=== PATIENT | female | born 1985 | race Caucasian/White ===

== ENCOUNTER 2016-08-05 09:41 | Emergency (ER) | payer MEDICARE, OTHER ==
[2016-08-05 10:28] VITALS: BP 145/89
[2016-08-05] MEDS ORDERED: PROMETHAZINE HCL 25 MG/ML AMPUL IM ONE (10:52)
[2016-08-05] MEDS ORDERED: PROMETHAZINE HCL 25 MG/ML AMPUL ONE (10:58)
--- NOTE | 2016-08-05 11:15 | ERNOTE ---
Medical Problem HPI - Narrative Date of Service: 08/05/16 - General Chief Complaint: Nausea/Vomiting Time Seen by Provider: 08/05/16 10:19 Source: patient Exam Limitations: no limitations - Immun/Allergies/Home Medications Immunizations: IMMUNIZATION HX Immunizations Up to Date Yes History of Influenza Vaccine Yes Hx Pneumococcal Vaccination No Allergies/Adverse Reactions: Allergies acetaminophen [From Tylenol] Allergy (Mild, Verified 08/05/16 10:28) Hives bupropion HCl [From Wellbutrin] Allergy (Mild, Verified 08/05/16 10:28) Hives pollen extracts Allergy (Verified 08/05/16 10:28) Home Medications: HOME MEDICATIONS Ranitidine HCl [Acid Control] 150 mg PO QID 11/29/13 [Last Taken 07/28/14] Levonorgestrel [Mirena] 1 each IY DAILY 04/01/14 [Last Taken 07/28/14] Melatonin/Pyridoxine HCl (B6) [Melatonin 10 mg Tablet] 1 each PO DAILY 07/05/15 [Last Taken Unknown] Albuterol Sulfate [Proair Hfa] 2 puff IH Q4H PRN #1 inhaler 01/18/16 [Last Taken Unknown] Diltiazem HCl [Cardizem] 120 mg PO DAILY 04/13/16 [Last Taken Unknown] traMADol HCL [Ultram] 50 mg PO TID PRN #21 tab 05/25/16 [Last Taken Unknown] Nabumetone 750 mg PO BID #20 tablet 07/17/16 [Last Taken Unknown] Promethazine HCl [Phenergan] 25 mg PO QID PRN #14 tablet 08/05/16 [Last Taken Unknown] - History of Present History Narrative: Patient is a 31 year old female who presents to the ED with complaints of sudden onset of vomiting. Patient states she was awake, watching television with her boyfriend at 0300 this morning when she felt a sudden urge to vomit. States vomited and then diarrhea issues started. States from [id number] vomited approximately 6 times. States it is slowing down and has not vomited since 0930 this morning. Denies fever, chills, body aches Date (Duration): 08/05/16 Time (Timing): 03:00 Timing: intermittent Severity: mild Modifying Factors - (Improves): Present: rest Review of Systems - Review of Systems Constitutional: Present: See HPI. Absent: recent illness, fever, chills, diaphoresis, weakness, fatigue EYE: Present: no symptoms reported. Absent: eye pain, eye discharge, blurred vision ENT: Present: no symptoms reported. Absent: ear pain, ear discharge, nose congestion, nasal drainage, sore throat, throat swelling Respiratory: Present: no symptoms reported. Absent: shortness of breath, cough , wheezing, stridor Cardiology: Present: no symptoms reported. Absent: chest pain, palpitations, syncope, edema Gastrointestinal/Abdominal: Present: nausea, vomiting, diarrhea, abdominal pain , eating less, drinking less Genitourinary: Present: no symptoms reported Musculoskeletal: Present: no symptoms reported. Absent: back pain, muscle pain , muscle stiffness Skin: Absent: rash, dryness Neurological: Present: no symptoms reported - Patient's Past Medical History Patient History - Medical: Chronic Pain, Depression, Fibromyalgia, GERD, Obesity , UTI'S Patient History - Cardiac/Respiratory: Arrhythmias, Asthma Patient History - Cancer: No Hx of Cancer Patient History - Surgical Procedures: Cholecystectomy, D & C, Other - Family History Father Family History - Medical: , Other Family History - Cardiac/Respiratory: No pertinent hx, Other Mother Family History - Medical: Family History - Cardiac/Respiratory: No pertinent hx, Other - Social History Living Situations: home Does anyone smoke in the home?: Yes Alcohol Use: none Drug Use: none Physical Exam - Physical Exam General Appearance: Present: wd/wn, alert, no apparent distress Eye Exam: Normal inspection: bilateral Ears, Nose, Throat: Present: hearing grossly normal. Absent: dry mucous membranes Neck: Present: normal inspection, nontender, full range of motion. Absent: lymphadenopathy (R), lymphadenopathy (L) Respiratory: Present: no respiratory distress, normal breath sounds, no accessory muscle use, chest nontender, lungs clear Cardiovascular/Chest: Present: regular rate, rhythm, no murmur, normal peripheral pulses Gastrointestinal/Abdominal: Present: normal bowel sounds, nondistended, soft, no organomegaly, tenderness - states tenderness across abdomen. Absent: distended Back Exam: Present: normal inspection, normal range of motion, no CVA tenderness , no vertebral tenderness Extremity Exam: Present: normal inspection, non-tender, no edema, normal range of motion Neurological Exam: Present: alert, oriented, normal mood/affect, no motor/ sensory deficits Skin Exam: Present: normal color, warm/dry. Absent: diaphoresis, cyanosis, pallor, skin rash Lymphatic Exam: Present: no adenopathy ED Progress - Vital Signs Patient's Vital Signs:: I have reviewed the patient's vital signs. Vital Signs: Vital Signs 08/05/16 10:26 Temperature 36.5 C Pulse Rate 112 H Respiratory 14 Rate Blood Pressure 145/89 O2 Sat by Pulse 99 Oximetry - Progress/Reassessment Chief Complaint: Nausea/Vomiting Progress:: Improved Progress Note-Subjective: 08/05/16 11:21 Patient states she has not vomited since being here in the ED. Is taking sips of 7 up without emesis. States she feels better Departure - Departure Clinical Impression: Vomiting and diarrhea Disposition: Home Follow Up Needed Condition: Good Instructions: Nausea and Vomiting, Adult, [id number], Diarrhea, Adult, Easy- to-Read Additional Instructions: Clear liquids today--drink water, sprite and gatorade. No pop, alcohol, juice or milk. If stomach tolerates then can proceed to dry toast and cereal. Prescriptions: Promethazine HCl [Phenergan] 25 mg PO QID PRN #14 tablet PRN Reason: Nausea And Vomiting
== END 2016-08-05 11:51 | disposition home or self-care (01) ==
LOC: ER 09:41
DX: R11.10 Vomiting, unspecified (principal); R19.7 Diarrhea, unspecified

== ENCOUNTER 2016-09-14 15:41 | Emergency (ER) | payer MEDICARE, OTHER ==
[2016-09-14 16:07] VITALS: BP 151/81
[2016-09-14] MEDS ORDERED: KETOROLAC TROMETHAMINE 60 MG/2 ML VIAL IM ONE ×2 (16:09→16:11)
--- OUTSIDE RECORDS SUMMARY | 2016-09-14 16:18 | XMS REPORT | Continuity of Care Document ---
:1985 Author Organization [facility] [place] [address] Care Team Providers Name Role Phone Alexi Thomson Primary Care Provider [phone] Source Comments This disclosure is being made pursuant to the [employer] program and maynot contain all information available regarding this patient.[facility] Active Allergies and Adverse Reactions Not on File Current Medications Be aware that medications may not be up to date as of this document. Alwaysverify current medications with the patient. Prescription Sig. Disp. Refills Start Date End Date Status escitalopram (LEXAPRO) 20 Take 20 mg by mouth Active MG tablet daily. diltiazem (DILACOR XR) Take 120 mg by Active 120 MG 24 hr capsule mouth daily. ranitidine (ZANTAC) 300 Take 300 mg by Active MG tablet mouth nightly. 1 tab tid albuterol (PROVENTIL Inhale 2 puffs into Active HFA;VENTOLIN HFA) 108 (90 the lungs every 6 BASE) MCG/ACT inhaler (six) hours as needed for Wheezing. traMADol (ULTRAM) 50 MG Take 50 mg by mouth Active tablet every 6 (six) hours as needed for Pain. 1 tab every 4-6 hours prn lidocaine-prilocaine Apply to low back 60 g 2 04/21/2014 Active (EMLA) cream twice a day as needed. Active Problems Not on file Most Recent Encounters Date Type Specialty Providers Description 07/05/2016 Data Import Social History Tobacco Use Types Packs/Day Years Used Date Current Some Day Smoker Alcohol Use Drinks/Week oz/Week Comments Yes occassionally Last Filed Vital Signs Vital Sign Reading Time Taken Blood Pressure 136/92 04/21/2014 1:32 PM CDT Pulse 104 04/21/2014 1:32 PM CDT Temperature 36.9 C (98.5 F) 04/21/2014 1:32 PM CDT Respiratory Rate - - Height 1.651 m (5' 5") 04/21/2014 1:32 PM CDT Weight 87.091 kg (192 lb) 04/21/2014 1:32 PM CDT Body Mass Index 31.95 04/21/2014 1:32 PM CDT Oxygen Saturation - - Plan of Care Health Maintenance Due Date Last Done Comments Tetanus/Pertussis (1 - Tdap) 2002 Pap Smear 2004 Influenza Immunization (#1) 2016 Results from Last 3 Months Not on file
--- OUTSIDE RECORDS SUMMARY | 2016-09-14 16:19 | XMS REPORT | Continuity of Care Document ---
:1985 Author Organization [facility] ([facility]) Address [address] [place] [address] Phone [phone] Care Team Providers Name Role Phone Tatum Vásquez Primary Care Provider [phone] Source Comments This disclosure is being made pursuant to the Care Everywhere program, applicable federal and state laws, and may not contain all informaitonavailable regarding this patient.[facility] ([facility]) Active Allergies and Adverse Reactions No Active Allergies Current Medications Not on file Active Problems Not on file Social History Tobacco Use Types Packs/Day Years Used Date Never Assessed Last Filed Vital Signs Vital Sign Reading Time Taken Blood Pressure 132/74 09/23/2006 11:11 AM VERIFICATION ENGINEER Pulse 64 09/23/2006 11:11 AM VERIFICATION ENGINEER Temperature - - Respiratory Rate 16 09/23/2006 11:11 AM VERIFICATION ENGINEER Height 1.65 m (5' 4.96") 05/26/2001 11:00 AM VERIFICATION ENGINEER Weight 66.996 kg (147 lb 11.2 oz) 09/23/2006 11:11 AM VERIFICATION ENGINEER Body Mass Index 24.61 09/23/2006 11:11 AM VERIFICATION ENGINEER Oxygen Saturation - - Plan of Care Health Maintenance Due Date Last Done Comments Hepatitis B Vaccine (1 of 3 - Primary Series) 1983 Tdap Vaccine 1994 Lipid Disorder Screening 2001 MMR Vaccine 2001 Td Vaccine 2001 Varicella Vaccine (1 of 2 - Adult - No Evidence of 2001 Immunity) Cervical Cancer Screening 2013 Influenza Vaccine: Seasonal (#1) 02/20/2016 Results from Last 3 Months Not on file
--- NOTE | 2016-09-14 16:20 | ERNOTE ---
Back Pain ER HPI Presenting Symptoms: hx chronic back pain Time Seen by Provider: 09/14/16 15:59 Source: patient Exam Limitations: no limitations Immunizations: IMMUNIZATION HX Immunizations Up to Date Yes History of Influenza Vaccine Yes Hx Pneumococcal Vaccination No Allergies/Adverse Reactions: Allergies acetaminophen [From Tylenol] Allergy (Mild, Verified 08/05/16 10:28) Hives bupropion HCl [From Wellbutrin] Allergy (Mild, Verified 08/05/16 10:28) Hives pollen extracts Allergy (Verified 08/05/16 10:28) Home Medications: HOME MEDICATIONS Ranitidine HCl [Acid Control] 150 mg PO QID 11/29/13 [Last Taken 07/28/14] Levonorgestrel [Mirena] 1 each IY DAILY 04/01/14 [Last Taken 07/28/14] Melatonin/Pyridoxine HCl (B6) [Melatonin 10 mg Tablet] 1 each PO DAILY 07/05/15 [Last Taken Unknown] Albuterol Sulfate [Proair Hfa] 2 puff IH Q4H PRN #1 inhaler 01/18/16 [Last Taken Unknown] Diltiazem HCl [Cardizem] 120 mg PO DAILY 04/13/16 [Last Taken Unknown] traMADol HCL [Ultram] 50 mg PO TID PRN #21 tab 05/25/16 [Last Taken Unknown] Nabumetone 750 mg PO BID #20 tablet 07/17/16 [Last Taken Unknown] Promethazine HCl [Phenergan] 25 mg PO QID PRN #14 tablet 08/05/16 [Last Taken Unknown] Narrative: Patient has chronic back pain for years. She denies any acute injuries, is already taking ibuprofen,flexeril, gabapentin. She is requesting tramadol. Timing: Reports: constant Quality/Severity: Reports: moderate Location of pain: Reports: lower back, no radiation Recent Injury?: Reports: no Associated Symptoms: Denies: sweating, constipation/incontinence, nausea/ vomiting, problems urinating, difficulty walking, lightheadedness, numbess/ weakness in legs Prior Treament: Reports: similar symptoms before Review of Systems - Review of Systems Constitutional: Absent: recent illness ENT: Present: nose congestion. Absent: sore throat Respiratory: Present: cough. Absent: shortness of breath Cardiology: Absent: chest pain Gastrointestinal/Abdominal: Absent: nausea, vomiting, diarrhea, abdominal pain Genitourinary: Present: no symptoms reported Musculoskeletal: Present: See HPI Skin: Present: no symptoms reported. Absent: rash Neurological: Present: no symptoms reported. Absent: weakness, numbness - Patient's Past Medical History Patient History - Medical: Chronic Pain, Depression, Fibromyalgia, GERD, Obesity , UTI'S Patient History - Cardiac/Respiratory: No pertinent hx Patient History - Cancer: No Hx of Cancer Patient History - Surgical Procedures: Cholecystectomy, D & C, Other Patient History - Other: None - Family History Father Family History - Medical: , Other Family History - Cardiac/Respiratory: No pertinent hx, Other Mother Family History - Medical: Family History - Cardiac/Respiratory: No pertinent hx, Other - Social History Living Situations: home Abuse History: No History of abuse Psych History: No pertinent hx Does anyone smoke in the home?: Yes Smoking Status: Current every day smoker Cigarettes Packs Per Day: 0.5 Alcohol Use: none Drug Use: none - Immunizations Immunizations Up to Date: Yes Hx Pneumococcal Vaccination: No History of Influenza Vaccine: Yes Physical Exam - Physical Exam General Appearance: Present: wd/wn, alert, no apparent distress Respiratory: Present: no respiratory distress, normal breath sounds, no accessory muscle use, chest nontender, lungs clear Cardiovascular/Chest: Present: regular rate, rhythm, no murmur Back Exam: Present: normal inspection, normal range of motion, no vertebral tenderness Extremity Exam: Present: normal inspection Neurological Exam: Present: alert, oriented, normal mood/affect, no motor/ sensory deficits Skin Exam: Present: normal color, warm/dry ED Progress - Vital Signs Patient's Vital Signs:: I have reviewed the patient's vital signs. Vital Signs: Vital Signs 09/14/16 16:00 Pulse Rate 102 H Respiratory 18 Rate Blood Pressure 151/81 O2 Sat by Pulse 96 Oximetry - Progress/Reassessment Chief Complaint: Back Pain Progress Note-Subjective: 09/14/16 16:10 explained that I cannot refill narcotic prescription for chronic pain, patient requested toradol Departure Clinical Impression: Chronic low back pain Qualifiers: Back pain laterality: bilateral Sciatica presence: without sciatica Qualified Code(s): M54.5 - Low back pain - Departure Disposition: Home self-care Condition: Good Instructions: Chronic Pain Additional Instructions: continue the ibuprofen, flexeril and gabapentin follow up with your doctor next week as scheduled Referrals: Kraig Roman MD [Primary Care Provider] -
== END 2016-09-14 16:28 | disposition home or self-care (01) ==
LOC: ER 15:41
DX: M54.5 Low back pain (principal); Z72.0 Tobacco use

== ENCOUNTER 2017-01-13 15:06 | Emergency (ER) | payer MEDICARE, OTHER ==
[2017-01-13] MEDS ORDERED: ORPHENADRINE CITRATE 30 MG/ML VIAL IM ONE (15:46)
[2017-01-13] MEDS ORDERED: KETOROLAC TROMETHAMINE 60 MG/2 ML VIAL IM ONE ×2 (15:46→15:50)
--- OUTSIDE RECORDS SUMMARY | 2017-01-13 15:49 | XMS REPORT | Continuity of Care Document ---
:1985 Author Organization [facility] Address [place] [address] Care Team Providers Name Role Phone Davy Roman Primary Care Provider [phone] Source Comments This disclosure is being made pursuant to the [employer] program and maynot contain all information available regarding this patient.[facility] Active Allergies and Adverse Reactions Not on [...] Recent Encounters Date Type Specialty Providers Description 11/12/2016 Telephone Family Medicine Gabriella Sharma, silo erector Management Social History Tobacco Use Types Packs/Day Years [...]
[2017-01-13] MEDS ORDERED: ORPHENADRINE CITRATE 30 MG/ML VIAL ONE (15:50)
--- NOTE | 2017-01-13 15:58 | ERNOTE ---
Back Pain ER HPI Date of Service: 01/13/17 Presenting Symptoms: hx chronic back pain Time Seen by Provider: 01/13/17 15:40 Source: patient Exam Limitations: no limitations Immunizations: IMMUNIZATION HX Immunizations Up to Date Yes History of Influenza Vaccine Yes Hx Pneumococcal Vaccination Yes Allergies/Adverse Reactions: Allergies pollen extracts Allergy (Mild, Verified 01/13/17 15:37) uri s/s acetaminophen [From Tylenol] Adverse Reaction (Mild, Verified 01/13/17 15:37) rash bupropion HCl [From Wellbutrin] Adverse Reaction (Mild, Verified 01/13/17 15:37) rash Home Medications: HOME MEDICATIONS Ranitidine HCl [Acid Control] 150 mg PO TID 11/29/13 [Last Taken 07/28/14] Levonorgestrel [Mirena] 1 each IY ONCE 04/01/14 [Last Taken 07/28/14] Albuterol Sulfate [Proair Hfa] 2 puff IH Q4H PRN #1 inhaler 01/18/16 [Last Taken Unknown] Diltiazem HCl [Cardizem] 120 mg PO DAILY 04/13/16 [Last Taken Unknown] traMADol HCL [Ultram] 50 mg PO TID PRN #21 tab 05/25/16 [Last Taken Unknown] Cyclobenzaprine HCl [Flexeril] 10 mg PO TID PRN #30 tab 01/13/17 [Last Taken Unknown] Lidocaine [Lidoderm 5%] 1 patch TP DAILY PRN #30 patch 01/13/17 [Last Taken Unknown] Meloxicam 7.5 mg PO DAILY #30 tablet 01/13/17 [Last Taken Unknown] Narrative: Pt. comes in with c/o mid back pain. Pt. states that this is the same pain that she has had chronically for years but without her chronic tramadol the pain radiates up to her neck. Pt. 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 Pt. denies any alleviating factors despite taking Ibuprofen for the pain. Review of Systems - Review of Systems Constitutional: Present: no symptoms reported. Absent: recent illness, fever, chills, weakness, fatigue, malaise EYE: Present: no symptoms reported ENT: Present: no symptoms reported Respiratory: Present: no symptoms reported. Absent: shortness of breath, cough , wheezing Cardiology: Present: no symptoms reported. Absent: chest pain, palpitations, edema Gastrointestinal/Abdominal: Present: no symptoms reported. Absent: nausea, vomiting, diarrhea Genitourinary: Present: no symptoms reported Musculoskeletal: Present: back pain - Mid back pain. Absent: neck pain, joint pain Skin: Present: no symptoms reported Neurological: Present: no symptoms reported. Absent: headache, dizziness/light- headedness, numbness, tingling All Other Systems: All systems neg except as marked - Patient's Past Medical History Patient History - Medical: Chronic Pain, Depression, Fibromyalgia, GERD, Obesity , UTI'S Patient History - Cardiac/Respiratory: No pertinent hx, Arrhythmias Patient History - Cancer: No Hx of Cancer Patient History - Surgical Procedures: Cholecystectomy, D & C Patient History - Other: None LMP (females 10-50): has iud - Family History Father Family History - Medical: History Unknown Family History - Cardiac/Respiratory: History Unknown Family History - Cancer: History Unknown Mother Family History - Medical: Family History - Cardiac/Respiratory: No pertinent hx Family History - Cancer: History Unknown Sister Family History - Medical: History Unknown Family History - Cardiac/Respiratory: History Unknown Family History - Cancer: History Unknown - Social History Living Situations: alone Abuse History: No History of abuse Psych History: Hx of Depression, Current tx/ever been on anti-depressants or anti-anxiety meds Does anyone smoke in the home?: Yes Smoking Status: Current every day smoker Have you smoked in the past 12 months: Yes Do you dip or chew tobacco: No Patient requests Smoking Cessation Consult: No Initiate information on Smoking Cessation: No Alcohol Use: none Drug Use: none - Immunizations Immunizations Up to Date: Yes Hx Pneumococcal Vaccination: Yes History of Influenza Vaccine: Yes Physical Exam - Physical Exam General Appearance: Present: wd/wn, alert, no apparent distress Eye Exam: Normal inspection: bilateral, PERRL: bilateral, EOMI: bilateral Neck: Present: normal inspection, nontender. Absent: lymphadenopathy (R), lymphadenopathy (L) Respiratory: Present: no respiratory distress, normal breath sounds, no accessory muscle use, chest nontender, lungs clear Cardiovascular/Chest: Present: regular rate, rhythm, no murmur, normal peripheral pulses Back Exam: Present: normal range of motion, no CVA tenderness, vertebral tenderness - T8-S1 Extremity Exam: Present: normal inspection, non-tender, normal range of motion, no edema Neurological Exam: Present: alert, oriented, normal mood/affect, no motor/ sensory deficits, lasting floorworker II-XII nml as tested, normal cerebellar test Skin Exam: Present: normal color, warm/dry. Absent: pallor, skin rash ED Progress - Date and Time Seen: Date and Time: 01/13/17 15:47 Explained that pt. would not be getting narcotics but that I would start her on new antiinflammatories and lidocaine patch and flexeril for pain. - Vital Signs Patient's Vital Signs:: I have reviewed the patient's vital signs. Vital Signs: Vital Signs 01/13/17 15:26 Temperature 36.5 C Pulse Rate 93 Respiratory 18 Rate Blood Pressure 152/80 O2 Sat by Pulse 100 Oximetry - Progress/Reassessment Chief Complaint: Back Pain Departure Clinical Impression: Chronic back pain greater than 3 months duration - Departure Disposition: Home self-care Condition: Good Instructions: Back Pain, Adult Additional Instructions: Keep appointment with Dr Chang in January and change lidoderm patch daily. Do not take Ibuprofen with meloxicam. Referrals: Tomer Chang MD [Primary Care Provider] - Prescriptions: Cyclobenzaprine HCl [Flexeril] 10 mg PO TID PRN #30 tab PRN Reason: MUSCLE SPASMS Lidocaine [Lidoderm 5%] 1 patch TP DAILY PRN #30 patch PRN Reason: Pain Meloxicam 7.5 mg PO DAILY #30 tablet
[2017-01-13 16:23] VITALS: BP 148/74
[2017-01-13] MEDS ORDERED: LIDOCAINE 1 PATCH ADH..PATCH TP ONE (16:30)
== END 2017-01-13 16:22 | disposition home or self-care (01) ==
LOC: ER 15:06
DX: M54.89 Other dorsalgia (principal); G89.29 Other chronic pain; F32.89 Other specified depressive episodes; M79.7 Fibromyalgia; K21.9 Gastro-esophageal reflux disease without esophagitis; Z72.0 Tobacco use

== ENCOUNTER 2017-06-09 14:30 | Emergency (ER) | payer MEDICARE, OTHER ==
[2017-06-09] MEDS ORDERED: KETOROLAC TROMETHAMINE 30 MG/ML VIAL IM ONE (15:07)
[2017-06-09 15:24] LABS: Urine Appearance Clear; Urine Bilirubin Negative (NEGATIVE); Urine Blood Negative /ul (NEGATIVE); Urine Color Yellow; Urine Ketone Negative (NEGATIVE)
[2017-06-09 15:25] LABS: Urine Bacteria None Seen; Urine Nitrite Negative (NEGATIVE); Urine Protein Negative (NEGATIVE); Urine RBC None Seen /hpf (0-5); Urine Urobilinogen Normal (NORMAL); Urine WBC None Seen /hpf (0-5)
[2017-06-09] MEDS ORDERED: KETOROLAC TROMETHAMINE 30 MG/ML VIAL ONE (15:29)
[2017-06-09 15:30] LABS: Hemoglobin 13.4 gm/dL (12.5-16.0); Mean Cell Volume 89.7 fl (78-100); Mean Corpuscular Hemoglobin 29.3 pg (27-31); Mean Corpuscular Hgb Conc 32.7 g/dl (32-36); Mean Platelet Volume 10.2 fl (6.0-9.5); Neutrophil # 4.5 K/mm3 (1.3-6.0); Neutrophil % 58.8 % (42-75.0); Platelet Count 295 K/mm3 (150-450); Red Blood Count 4.57 M/mm3 (4.2-5.4); White Blood Count 7.6 K/mm3 (4.0-10.5)
[2017-06-09 15:43] LABS: Albumin * 3.8 gm/dl (3.4-5.0); Anion Gap 12.8 mmol/L (6.8-13.8); Bilirubin, Total 0.2 mg/dL (0.0-1.1); Ca. Corrected For Albumin 8.8 mg/dL (8.4-10.2); Carbon Dioxide 28.5 mmol/L (24-32.6); Potassium 4.3 mmol/L (3.4-4.6); Total Protein 7.5 gm/dL (6.2-8.2)
[2017-06-09 15:47] VITALS: BP 136/84
--- NOTE | 2017-06-09 17:22 | ERNOTE ---
ER Female HPI Date of Service: 06/09/17 Stated Complaint: BACK/SIDE PAIN Time Seen by Provider: 06/09/17 14:57 Source: patient Exam Limitations: no limitations Immunizations: IMMUNIZATION HX Immunizations Up to Date Yes History of Influenza Vaccine Yes Hx Pneumococcal Vaccination Yes Allergies/Adverse Reactions: Allergies pollen extracts Allergy (Mild, Verified 06/09/17 14:45) uri s/s acetaminophen [From Tylenol] Adverse Reaction (Mild, Verified 06/09/17 14:45) rash bupropion HCl [From Wellbutrin] Adverse Reaction (Mild, Verified 06/09/17 14:45) rash Home Medications: HOME MEDICATIONS Ranitidine HCl [Acid Control] 150 mg PO TID 11/29/13 [Last Taken 07/28/14] Levonorgestrel [Mirena] 1 each IY ONCE 04/01/14 [Last Taken 07/28/14] Albuterol Sulfate [Proair Hfa] 2 puff IH Q4H PRN #1 inhaler 01/18/16 [Last Taken Unknown] Diltiazem HCl [Cardizem] 120 mg PO DAILY 04/13/16 [Last Taken Unknown] traMADol HCL [Ultram] 50 mg PO TID PRN #12 tab 06/09/17 [Last Taken Unknown] - History of Present Illness Narrative: Patient presents to the ED for right flank pain that radiates into her RUQ. SHe has been having this for 2-3 days. She has had pain like this before but it has gone away. No vomiting ot fever. Nothing seems to make this better or worse. o CP roSOB. No pleuritic pain, no DVT Sx. No low abdominal pain. Has not seen anyone else for this. Timing: Present: constant, other - fluctuating intensity Quality: Present: moderate Onset Location: Present: right flank Radiation: Present: other - RUQ Activities at Onset: Present: none Modifying Factors - (Improves): Present: other - nothing Modifying Factors - (Worsens): Present: other - nothing Associated Symptoms: Absent: fever/chills, vomiting, dysuria Prior Treatment: Absent: recently seen Review of Systems - Review of Systems Constitutional: Absent: fever ENT: Absent: sore throat Respiratory: Absent: shortness of breath Cardiology: Absent: chest pain Gastrointestinal/Abdominal: Present: See HPI Genitourinary: Absent: dysuria Musculoskeletal: Present: back pain Skin: Absent: rash Neurological: Absent: weakness - Patient's Past Medical History Patient History - Medical: Chronic Pain, Depression, Fibromyalgia, GERD, Obesity , UTI'S Patient History - Cardiac/Respiratory: No pertinent hx, Arrhythmias Patient History - Cancer: No Hx of Cancer Patient History - Surgical Procedures: Cholecystectomy, D & C Patient History - Other: None - Family History Father Family History - Medical: History Unknown Family History - Cardiac/Respiratory: History Unknown Family History - Cancer: History Unknown Mother Family History - Medical: Family History - Cardiac/Respiratory: No pertinent hx Family History - Cancer: History Unknown Sister Family History - Medical: History Unknown Family History - Cardiac/Respiratory: History Unknown Family History - Cancer: History Unknown - Social History Living Situations: home Abuse History: No History of abuse Psych History: Hx of Depression, Current tx/ever been on anti-depressants or anti-anxiety meds Alcohol Use: none Drug Use: none - Immunizations Immunizations Up to Date: Yes Hx Pneumococcal Vaccination: Yes History of Influenza Vaccine: Yes Physical Exam - Physical Exam General Appearance: Present: alert, no apparent distress Head Exam: Present: normal inspection, no evidence of injury Eye Exam: Normal inspection: bilateral, PERRL: bilateral Ears, Nose, Throat: Present: normal ENT inspection Neck: Present: normal inspection Respiratory: Present: no respiratory distress, normal breath sounds, no accessory muscle use, lungs clear Cardiovascular/Chest: Present: regular rate, rhythm, normal peripheral pulses Gastrointestinal/Abdominal: Present: normal bowel sounds, nontender, nondistended, soft Back Exam: Present: no vertebral tenderness, CVA tenderness (R) Extremity Exam: Present: normal inspection, normal range of motion, no edema Neurological Exam: Present: alert, normal mood/affect, no motor/sensory deficits. Absent: motor weakness Skin Exam: Present: normal color, warm/dry ED Progress - Results and Orders Patient's Lab Results:: I have reviewed the patient's lab results. - Vital Signs Patient's Vital Signs:: I have reviewed the patient's vital signs. Vital Signs: Vital Signs 06/09/17 06/09/17 14:40 15:45 Temperature 36.8 C 36.8 C Pulse Rate 99 82 Respiratory 12 14 Rate Blood Pressure 149/90 136/84 O2 Sat by Pulse 99 99 Oximetry - CT/Ultrasound CT/Ultrasound Narrative: I reviewed official radiology CT report - Progress/Reassessment Chief Complaint: Genitourinary Problem Progress Note-Subjective: 06/09/17 17:21 No clear etiology, possible musculoskeletal. No UTI, nothign to suggest acute intra-abdominal pathology or [id number] syndrome. No suggestion on PE or intra-thoracic etiology. She feels like going home. I discussed warning signs and reasons to return as well as the need for close f/u. Departure Clinical Impression: Right flank pain - Departure Disposition: Home self-care Condition: Stable Instructions: Flank Pain, [id number] Additional Instructions: Rest. FLuids. No driving with Ultram. Follow-up with your doctor within 3 days for a re-check. Return for fever, vomiting or if your condition worsens or changes in any way. Prescriptions: traMADol HCL [Ultram] 50 mg PO TID PRN #12 tab PRN Reason: Pain
== END 2017-06-09 17:22 | disposition home or self-care (01) ==
LOC: ER 14:30
DX: R10.11 Right upper quadrant pain (principal); G89.29 Other chronic pain; M79.7 Fibromyalgia; K21.9 Gastro-esophageal reflux disease without esophagitis; Z87.440 Personal history of urinary (tract) infections

== ENCOUNTER 2017-07-15 14:57 | Emergency (ER) | payer MEDICARE, OTHER ==
[2017-07-15 15:21] VITALS: BP 124/76
[2017-07-15] MEDS: GABAPENTIN 100 MG CAPSULE PO ONE (15:53)
--- NOTE | 2017-07-15 15:53 | ERNOTE ---
Medical Problem HPI - Narrative Date of Service: 07/15/17 - General Chief Complaint: Foot Injury/Pain Time Seen by Provider: 07/15/17 15:39 Source: patient Exam Limitations: no limitations - Immun/Allergies/Home Medications Immunizations: IMMUNIZATION HX Immunizations Up to Date Yes History of Influenza Vaccine No Hx Pneumococcal Vaccination No Allergies/Adverse Reactions: Allergies pollen extracts Allergy (Mild, Verified 07/15/17 15:25) uri s/s acetaminophen [From Tylenol] Adverse Reaction (Mild, Verified 07/15/17 15:25) rash bupropion HCl [From Wellbutrin] Adverse Reaction (Mild, Verified 07/15/17 15:25) rash Home Medications: HOME MEDICATIONS Ranitidine HCl [Acid Control] 150 mg PO TID 11/29/13 [Last Taken 07/28/14] Levonorgestrel [Mirena] 1 each IY ONCE 04/01/14 [Last Taken 07/28/14] Albuterol Sulfate [Proair Hfa] 2 puff IH Q4H PRN #1 inhaler 01/18/16 [Last Taken Unknown] Diltiazem HCl [Cardizem] 120 mg PO DAILY 04/13/16 [Last Taken Unknown] Gabapentin 300 mg PO BID #30 capsule 07/15/17 [Last Taken Unknown] - History of Present History Narrative: Patient is a 32-year-old female who presents to the emergency room complaining of bilateral foot pain that has been ongoing for the past several years, at least 5 years. She is currently on gabapentin but she can't remember the dosage. She ran out of her medication and has not taken gabapentin for the past 2 days. She is here with her son who collaborated with her history. She reports foot pain from the ankle all the way to the toes, and a glove and stocking fashion. She denies any swelling, open wounds, redness, paresthesia, Date (Duration): 07/13/17 Timing: constant Severity: moderate Review of Systems - Review of Systems Constitutional: Present: See HPI EYE: Present: see HPI ENT: Present: See HPI Respiratory: Present: See HPI Cardiology: Present: See HPI Gastrointestinal/Abdominal: Present: See HPI Musculoskeletal: Present: See HPI Skin: Present: See HPI Neurological: Present: See HPI Endocrine: Present: See HPI Hematologic/Lymphatic: Present: See HPI Psych: Present: See HPI - Patient's Past Medical History Patient History - Medical: Chronic Pain, Depression, Fibromyalgia, GERD, Obesity , UTI'S Patient History - Cardiac/Respiratory: No pertinent hx, Arrhythmias Patient History - Cancer: No Hx of Cancer Patient History - Surgical Procedures: Cholecystectomy, D & C Patient History - Other: None LMP (females 10-50): IUD - Family History Father Family History - Medical: History Unknown Family History - Cardiac/Respiratory: History Unknown Family History - Cancer: History Unknown Mother Family History - Medical: Family History - Cardiac/Respiratory: No pertinent hx Family History - Cancer: History Unknown Sister Family History - Medical: History Unknown Family History - Cardiac/Respiratory: History Unknown Family History - Cancer: History Unknown maternal grandmother Family History - Medical: , Liver Disease Family History - Cardiac/Respiratory: History Unknown Family History - Cancer: History Unknown - Social History Living Situations: significant other Abuse History: No History of abuse Psych History: No pertinent hx Smoking Status: Current every day smoker Have you smoked in the past 12 months: Yes Do you dip or chew tobacco: No Patient requests Smoking Cessation Consult: No Initiate information on Smoking Cessation: No Alcohol Use: none Drug Use: none - Immunizations Immunizations Up to Date: Yes Hx Pneumococcal Vaccination: No History of Influenza Vaccine: No Physical Exam - Physical Exam General Appearance: Present: wd/wn, alert, no apparent distress Head Exam: Present: normal inspection, no evidence of injury Extremity Exam: Present: normal inspection, normal except -, normal range of motion Neurological Exam: Present: alert, oriented, normal mood/affect Skin Exam: Present: normal color, warm/dry Lymphatic Exam: Present: no adenopathy ED Progress - Vital Signs Patient's Vital Signs:: I have reviewed the patient's vital signs. Vital Signs: Vital Signs 07/15/17 15:15 Temperature 36.5 C Pulse Rate 92 Respiratory 15 Rate Blood Pressure 124/76 O2 Sat by Pulse 100 Oximetry - Progress/Reassessment Chief Complaint: Foot Injury/Pain Progress:: Unchanged Progress Note-Subjective: 07/15/17 15:48 Patient has been on gabapentin before as per the history she's given. But gabapentin is not part of her medication list. I am not opposed to starting her on 300 mg of gabapentin twice a day. Follow-up with the primary care physician and hopefully primary care physician can titrate her gabapentin to symptom control - Transfer of Care Expected Disposition: Discharge Departure Clinical Impression: Neuropathy - Departure Disposition: [facility] Condition: Stable Instructions: Neuropathic Pain Print Language: German Additional Instructions: We'll proceed and give her 300 mg of gabapentin by mouth 1 here in the emergency room right prescription for gabapentin 300 mg twice a day to be picked up tomorrow and have her follow up with her primary care physician Prescriptions: Gabapentin 300 mg PO BID #30 capsule
== END 2017-07-15 15:56 | disposition home or self-care (01) ==
LOC: ER 14:57
DX: G62.9 Polyneuropathy, unspecified; M79.7 Fibromyalgia; K21.9 Gastro-esophageal reflux disease without esophagitis; G89.29 Other chronic pain

== ENCOUNTER 2017-07-26 14:18 | Emergency (ER) | payer MEDICARE, OTHER ==
[2017-07-26 14:25] VITALS: BP 127/86
[2017-07-26] MEDS ORDERED: KETOROLAC TROMETHAMINE 60 MG/2 ML VIAL IM ONE (14:48)
[2017-07-26] MEDS ORDERED: PROMETHAZINE HCL 50 MG/ML AMPUL IM ONE (14:48)
[2017-07-26] MEDS: KETOROLAC TROMETHAMINE 60 MG/2 ML VIAL IM ONE (14:53)
[2017-07-26] MEDS: PROMETHAZINE HCL 50 MG/ML AMPUL IM ONE (14:53)
--- NOTE | 2017-07-26 14:54 | ERNOTE ---
Headache ER HPI - Narrative Date of Service: 07/26/17 - General Presenting Symptoms: headache Time Seen by Provider: 07/26/17 14:39 Source: patient - Immun/Allergies/Home Medications Immunizations: IMMUNIZATION HX Immunizations Up to Date Yes History of Influenza Vaccine No Hx Pneumococcal Vaccination No Allergies/Adverse Reactions: Allergies pollen extracts Allergy (Mild, Verified 07/26/17 14:25) uri s/s acetaminophen [From Tylenol] Adverse Reaction (Mild, Verified 07/26/17 14:25) rash bupropion HCl [From Wellbutrin] Adverse Reaction (Mild, Verified 07/26/17 14:25) rash Home Medications: HOME MEDICATIONS Ranitidine HCl [Acid Control] 150 mg PO TID 11/29/13 [Last Taken 07/28/14] Levonorgestrel [Mirena] 1 each IY ONCE 04/01/14 [Last Taken 07/28/14] Albuterol Sulfate [Proair Hfa] 2 puff IH Q4H PRN #1 inhaler 01/18/16 [Last Taken Unknown] Diltiazem HCl [Cardizem] 120 mg PO DAILY 04/13/16 [Last Taken Unknown] Gabapentin 300 mg PO BID #30 capsule 07/15/17 [Last Taken Unknown] Promethazine HCl 50 mg PO QID #30 tablet 07/26/17 [Last Taken Unknown] - History of Present Illness Narrative: onset of headache 2-3 days [employer] tender Timing of Headache: gradual, still present, persistent Context Headache: Present: new onset Quality: Present: pressure, throbbing Severity Maximum: Present: moderate Severity-Currently: Present: moderate Headache frequency: Present: no recent headache, frequent headaches Modifying Factors - (Improves): Reports: rest Modifying Factors - (Worsens): Reports: movement, exposure to light Associated Symptoms: Reports: nausea Exacerbated by:: Reports: light, noise, movement Review of Systems - Narrative Narrative: unremarkable - Review of Systems Constitutional: Present: See HPI EYE: Present: no symptoms reported ENT: Present: no symptoms reported Respiratory: Present: no symptoms reported Cardiology: Present: no symptoms reported Gastrointestinal/Abdominal: Present: nausea Genitourinary: Present: no symptoms reported Musculoskeletal: Present: no symptoms reported Skin: Present: no symptoms reported Neurological: Present: See HPI, headache Endocrine: Present: no symptoms reported Hematologic/Lymphatic: Present: no symptoms reported Psych: Present: no symptoms reported All Other Systems: All systems neg except as marked - Narrative Narrative: unremarkable - Patient's Past Medical History Patient History - Medical: Chronic Pain, Depression, Fibromyalgia, GERD, Obesity , UTI'S Patient History - Cardiac/Respiratory: No pertinent hx, Arrhythmias Patient History - Cancer: No Hx of Cancer Patient History - Surgical Procedures: Cholecystectomy, D & C Patient History - Other: None LMP (females 10-50): IUD - Family History Family History:: no untoward family reactions to anesthesia, no familial bleeding tendencies, no family history of clotting disorders, no family history of premature - Family History Father Family History - Medical: History Unknown Family History - Cardiac/Respiratory: History Unknown Family History - Cancer: History Unknown Mother Family History - Medical: Family History - Cardiac/Respiratory: No pertinent hx Family History - Cancer: History Unknown Sister Family History - Medical: History Unknown Family History - Cardiac/Respiratory: History Unknown Family History - Cancer: History Unknown maternal grandmother Family History - Medical: , Liver Disease Family History - Cardiac/Respiratory: History Unknown Family History - Cancer: History Unknown - Social History Living Situations: home Abuse History: No History of abuse Psych History: No pertinent hx Smoking Status: Current every day smoker Alcohol Use: occasionally Drug Use: none - Immunizations Immunizations Up to Date: Yes Hx Pneumococcal Vaccination: No History of Influenza Vaccine: No Physical Exam - Physical Exam Narrative: patient appears in mild distress General Appearance: Present: mild distress Head Exam: Present: normal inspection, no evidence of injury Eye Exam: Normal inspection: bilateral, PERRL: bilateral, EOMI: bilateral Ears, Nose, Throat: Present: normal ENT inspection Neck: Present: normal inspection, nontender Respiratory: Present: no respiratory distress, normal breath sounds, no accessory muscle use, chest nontender, lungs clear Cardiovascular/Chest: Present: regular rate, rhythm, no murmur, normal peripheral pulses Peripheral Pulses: N=norm/S=strong/W=weak/B=bound/A=absent: Carotid (R): Normal , Carotid (L): Normal, Radial (R): Normal, Radial (L): Normal, Femoral (R): Normal, Femoral (L): Normal, Dorsalis-pedis (R): Normal, Dorsalis-pedis (L): Normal Gastrointestinal/Abdominal: Present: normal bowel sounds, nontender, nondistended, soft, no organomegaly Back Exam: Present: normal inspection, normal range of motion, no CVA tenderness , no vertebral tenderness Extremity Exam: Present: normal inspection, non-tender, normal range of motion, no edema Neurological Exam: Present: alert, oriented, normal mood/affect, no motor/ sensory deficits DTR: N=norm/NB=norm/brisk/A=abs/DD=dull/dimin/HC=hyperactive: Bicep (R): Normal , Bicep (L): Normal, Tricep (R): Normal, Tricep (L): Normal, Knee (R): Normal, Knee (L): Normal, Ankle (R): Normal, Ankle (L): Normal Skin Exam: Present: normal color, warm/dry Lymphatic Exam: Present: no adenopathy ED Progress - Date and Time Seen: Date and Time: 07/26/17 14:50 improved - Vital Signs Patient's Vital Signs:: I have reviewed the patient's vital signs. Vital Signs: Vital Signs 07/26/17 14:22 Temperature 36.0 C L Pulse Rate 88 Respiratory 16 Rate Blood Pressure 127/86 O2 Sat by Pulse 97 Oximetry - Progress/Reassessment Chief Complaint: Headache Progress:: Improved - Transfer of Care Expected Disposition: Discharge Plan - Plan Plan: to be discharged Departure Clinical Impression: Migraine - Departure Disposition: Home self-care Condition: Fair Instructions: Migraine Headache, [id number] Referrals: Heriberto Watson MD [Primary Care Provider] - Prescriptions: Promethazine HCl 50 mg PO QID #30 tablet
== END 2017-07-26 14:58 | disposition home or self-care (01) ==
LOC: ER 14:18
DX: G43.909 Migraine, unspecified, not intractable, without status migrainosus (principal); F17.200 Nicotine dependence, unspecified, uncomplicated

== ENCOUNTER 2017-08-07 15:47 | Emergency (ER) | payer MEDICARE, OTHER ==
--- NOTE | 2017-08-07 16:41 | ERNOTE ---
Back Pain ER HPI Presenting Symptoms: hx chronic back pain Time Seen by Provider: 08/07/17 16:32 Source: patient Exam Limitations: no limitations Immunizations: IMMUNIZATION HX Immunizations Up to Date Yes History of Influenza Vaccine No Hx Pneumococcal Vaccination No Allergies/Adverse Reactions: Allergies pollen extracts Allergy (Mild, Verified 08/07/17 16:18) uri s/s acetaminophen [From Tylenol] Adverse Reaction (Mild, Verified 08/07/17 16:18) rash bupropion HCl [From Wellbutrin] Adverse Reaction (Mild, Verified 08/07/17 16:18) rash Home Medications: HOME MEDICATIONS Ranitidine HCl [Acid Control] 150 mg PO TID 11/29/13 [Last Taken 07/28/14] Levonorgestrel [Mirena] 1 each IY ONCE 04/01/14 [Last Taken 07/28/14] Albuterol Sulfate [Proair Hfa] 2 puff IH Q4H PRN #1 inhaler 01/18/16 [Last Taken Unknown] Diltiazem HCl [Cardizem] 120 mg PO DAILY 04/13/16 [Last Taken Unknown] Gabapentin 300 mg PO BID #30 capsule 07/15/17 [Last Taken Unknown] Ibuprofen [Motrin] 800 mg PO TID PRN #60 tab 08/07/17 [Last Taken Unknown] Narrative: Patient has chronic back pain, she is here because she would like medication for it, denies any new injury Timing: Reports: constant Quality/Severity: Reports: moderate Location of pain: Reports: lower back, no radiation Recent Injury?: Reports: no Associated Symptoms: Denies: fever/chills, constipation/incontinence, nausea/ vomiting Review of Systems - Review of Systems Constitutional: Absent: recent illness, chills Respiratory: Absent: shortness of breath Cardiology: Absent: chest pain Gastrointestinal/Abdominal: Present: no symptoms reported Genitourinary: Present: no symptoms reported Musculoskeletal: Present: See HPI, back pain Neurological: Absent: weakness, numbness - Patient's Past Medical History Patient History - Medical: Chronic Pain, Depression, Fibromyalgia, GERD, Obesity , UTI'S, Other Patient History - Cardiac/Respiratory: No pertinent hx, Arrhythmias Patient History - Cancer: No Hx of Cancer Patient History - Surgical Procedures: Cholecystectomy, D & C Patient History - Other: None LMP (females 10-50): other - Family History Father Family History - Medical: History Unknown Family History - Cardiac/Respiratory: History Unknown Family History - Cancer: History Unknown Mother Family History - Medical: Family History - Cardiac/Respiratory: No pertinent hx Family History - Cancer: History Unknown Sister Family History - Medical: History Unknown Family History - Cardiac/Respiratory: History Unknown Family History - Cancer: History Unknown maternal grandmother Family History - Medical: , Liver Disease Family History - Cardiac/Respiratory: History Unknown Family History - Cancer: History Unknown - Social History Living Situations: home Abuse History: No History of abuse Psych History: No pertinent hx - Immunizations Immunizations Up to Date: Yes Hx Pneumococcal Vaccination: No History of Influenza Vaccine: No Physical Exam - Physical Exam General Appearance: Present: wd/wn, alert, no apparent distress, other - unkept , dirty Respiratory: Present: no respiratory distress, normal breath sounds, lungs clear Cardiovascular/Chest: Present: regular rate, rhythm Back Exam: Present: normal inspection, other - mild lower lumbar pain Extremity Exam: Present: normal inspection, no edema Neurological Exam: Present: alert, oriented, normal mood/affect, no motor/ sensory deficits Skin Exam: Present: normal color, warm/dry ED Progress - Vital Signs Patient's Vital Signs:: I have reviewed the patient's vital signs. Vital Signs: Vital Signs 08/07/17 16:15 Temperature 36.8 C Pulse Rate 100 Respiratory 17 Rate Blood Pressure 134/76 O2 Sat by Pulse 97 Oximetry - Progress/Reassessment Chief Complaint: Back Pain Progress Note-Subjective: 08/07/17 16:39 discussed that I can't refill prescription for chronic pain, agreed on ibuprofen has appointment to get established with new PCP Departure Clinical Impression: Chronic low back pain Qualifiers: Back pain laterality: bilateral Sciatica presence: unspecified whether sciatica present Qualified Code(s): M54.5 - Low back pain; G89.29 - Other chronic pain; G89.29 - Other chronic pain - Departure Disposition: Home self-care Condition: Good Instructions: Chronic Pain Referrals: Yasmany Louis DC [Primary Care Provider] - Prescriptions: Ibuprofen [Motrin] 800 mg PO TID PRN #60 tab PRN Reason: Pain
[2017-08-07 17:15] VITALS: BP 128/70
== END 2017-08-07 16:40 | disposition home or self-care (01) ==
LOC: ER 15:47
DX: Z87.440 Personal history of urinary (tract) infections; M54.5 Low back pain; K21.9 Gastro-esophageal reflux disease without esophagitis; I49.9 Cardiac arrhythmia, unspecified; G89.29 Other chronic pain

== ENCOUNTER 2017-08-08 17:09 | Emergency (ER) | payer MEDICARE, OTHER ==
[2017-08-08 17:15] VITALS: BP 146/95
--- NOTE | 2017-08-08 17:31 | ERNOTE ---
Medical Problem HPI - Narrative Date of Service: 08/08/17 - General Chief Complaint: Nausea/Vomiting Time Seen by Provider: 08/08/17 17:20 Source: patient, RN notes reviewed Exam Limitations: no limitations - Immun/Allergies/Home Medications Immunizations: IMMUNIZATION HX Immunizations Up to Date Yes History of Influenza Vaccine No Hx Pneumococcal Vaccination No Allergies/Adverse Reactions: Allergies pollen extracts Allergy (Mild, Verified 08/08/17 17:15) uri s/s acetaminophen [From Tylenol] Adverse Reaction (Mild, Verified 08/08/17 17:15) rash bupropion HCl [From Wellbutrin] Adverse Reaction (Mild, Verified 08/08/17 17:15) rash Home Medications: HOME MEDICATIONS Ranitidine HCl [Acid Control] 150 mg PO TID 11/29/13 [Last Taken 07/28/14] Levonorgestrel [Mirena] 1 each IY ONCE 04/01/14 [Last Taken 07/28/14] Albuterol Sulfate [Proair Hfa] 2 puff IH Q4H PRN #1 inhaler 01/18/16 [Last Taken Unknown] Diltiazem HCl [Cardizem] 120 mg PO DAILY 04/13/16 [Last Taken Unknown] Gabapentin 300 mg PO BID #30 capsule 07/15/17 [Last Taken Unknown] Ibuprofen [Motrin] 800 mg PO TID PRN #60 tab 08/07/17 [Last Taken Unknown] - History of Present History Narrative: 32 year old female presents with vomiting and diarrhea that began 6 hours ago. She has had one episode of each. She currently denies nausea or abdominal pain. She denies any sick contacts, but was seen here yesterday for low back pain. Date (Duration): 08/08/17 Time (Timing): 11:00 Review of Systems - Review of Systems Constitutional: Present: fatigue, malaise. Absent: fever EYE: Present: no symptoms reported ENT: Present: no symptoms reported Respiratory: Absent: shortness of breath, cough Cardiology: Absent: chest pain, syncope Gastrointestinal/Abdominal: Present: vomiting, diarrhea, eating less, drinking less. Absent: nausea, abdominal pain Genitourinary: Absent: dysuria, decreased urinary output Musculoskeletal: Present: back pain. Absent: joint pain Skin: Absent: rash, lesions, change in color Neurological: Absent: headache, dizziness/light-headedness Endocrine: Present: no symptoms reported Hematologic/Lymphatic: Present: no symptoms reported Psych: Present: anxiety, emotional problems - Patient's Past Medical History Patient History - Medical: Chronic Pain, Depression, Fibromyalgia, GERD, Obesity , UTI'S, Other Patient History - Cardiac/Respiratory: Arrhythmias - Tachycardia Patient History - Cancer: No Hx of Cancer Patient History - Surgical Procedures: Cholecystectomy, D & C Patient History - Other: None LMP (females 10-50): IUD - Family History Father Family History - Medical: History Unknown Family History - Cardiac/Respiratory: History Unknown Family History - Cancer: History Unknown Mother Family History - Medical: Family History - Cardiac/Respiratory: No pertinent hx Family History - Cancer: History Unknown Sister Family History - Medical: History Unknown Family History - Cardiac/Respiratory: History Unknown Family History - Cancer: History Unknown maternal grandmother Family History - Medical: , Liver Disease Family History - Cardiac/Respiratory: History Unknown Family History - Cancer: History Unknown - Social History Living Situations: home Abuse History: No History of abuse Psych History: No pertinent hx Smoking Status: Current every day smoker Alcohol Use: none Drug Use: none - Immunizations Immunizations Up to Date: Yes Hx Pneumococcal Vaccination: No History of Influenza Vaccine: No Physical Exam - Physical Exam General Appearance: Present: wd/wn, alert, no apparent distress, other - Disheveled Head Exam: Present: normal inspection Eye Exam: Normal inspection: bilateral, PERRL: bilateral Neck: Present: normal inspection, nontender, supple Respiratory: Present: no respiratory distress, normal breath sounds, no accessory muscle use, lungs clear Cardiovascular/Chest: Present: no murmur, normal peripheral pulses, tachycardia Gastrointestinal/Abdominal: Present: normal bowel sounds, nontender, nondistended, soft Extremity Exam: Present: normal inspection, normal range of motion Neurological Exam: Present: alert, oriented, normal mood/affect, no motor/ sensory deficits Skin Exam: Present: normal color, warm/dry ED Progress - Vital Signs Patient's Vital Signs:: I have reviewed the patient's vital signs. Vital Signs: Vital Signs 08/08/17 17:12 Temperature 36.2 C L Pulse Rate 113 H Respiratory 16 Rate Blood Pressure 146/95 O2 Sat by Pulse 98 Oximetry - Progress/Reassessment Chief Complaint: Nausea/Vomiting Progress:: Unchanged Plan - Plan Plan: Symptoms likely viral. Discussed home treatment and expected course of illness. Patient verbalizes understanding. Departure Clinical Impression: Viral gastroenteritis - Departure Disposition: Home self-care Condition: Stable Instructions: Viral Gastroenteritis, Adult, [id number] Referrals: Yasmany Louis DC [Primary Care Provider] -
== END 2017-08-08 17:39 | disposition home or self-care (01) ==
LOC: ER 17:09
DX: A08.4 Viral intestinal infection, unspecified (principal); Z87.440 Personal history of urinary (tract) infections; K21.9 Gastro-esophageal reflux disease without esophagitis; I49.9 Cardiac arrhythmia, unspecified; F17.200 Nicotine dependence, unspecified, uncomplicated